=== PATIENT | female | born 1970 | race American Indian/Alaskan Native ===

== ENCOUNTER 2021-03-14 16:56 | Emergency (ER) | payer SELFPAY ==
[2021-03-14 18:39] VITALS: BP 131/66
[2021-03-14] MEDS ORDERED: ACETAMINOPHEN 500 MG TAB PO ONE (20:45)
--- NOTE | 2021-03-14 21:12 | XRay Report ---
LEFT FOOT 3 VIEW(S) INDICATION / CLINICAL INFORMATION: ceiling fell on foot COMPARISON: None available. FINDINGS: BONES / JOINT(S): No acute fracture or subluxation. No significant arthritis. SOFT TISSUES: No significant abnormality. ADDITIONAL FINDINGS: None. Signer Name: Antwan Kay DO Signed: 03/14/2021 9:07 PM Workstation Name: [id number]
--- NOTE | 2021-03-14 21:14 | XRay Report ---
RIGHT SHOULDER 3 VIEW(S) INDICATION / CLINICAL INFORMATION: Ceiling fell on Pt... shoulder pain COMPARISON: None available. FINDINGS: BONES / JOINT(S): No acute fracture or subluxation. No significant arthritis. SOFT TISSUES: No significant abnormality. ADDITIONAL FINDINGS: None. Signer Name: Antwan Kay DO Signed: 03/14/2021 9:09 PM Workstation Name: [id number]
--- NOTE | 2021-03-14 22:11 | Emergency Department Report ---
ED Extremity Problem HPI - General Chief complaint: Back Pain/Injury Stated complaint: ACCIDENT/SHOULDER/TOE PAIN Source: patient Mode of arrival: Ambulatory Limitations: No Limitations - History of Present Illness Initial comments: Patient is a 50-year-old -[place] female with no past medical history presents to the ED with complaint of acute onset persistent right shoulder pain and left foot and fourth toe pain after a ceiling caved in and fell on her and her grandchildren 4 days ago. Patient states that the pain has been persistent, constant and worse especially with weightbearing or active range of motion. Patient denies loss of consciousness, headache, dizziness, syncope, chest pain, shortness of breath, abdominal pain, nausea and vomiting, numbness and tingling or weakness of upper and lower extremities bilaterally or vision changes. MD Complaint: extremity pain (left foot and 4th toe pain; right shoulder pain), joint paint (right shoulder pain; left 4th toe pain) -: Sudden, days(s) (4) Location: left, lower extremity (left foot and 4th toe pain.), other (right shoulder pain) History of Same: No -: Yes myalgia, Yes arthralgia (left foot and 4th toe; right shoulder) Severity scale (0 -10): 3 Quality: aching, sharp Consistency: constant Improves with: nothing Worsens with: weight bearing, walking, exertion, palpation Associated Symptoms: denies other symptoms, arthralgias (right shoulder pain; left foot and 4th toe) - Related Data Previous Rx's Medication Instructions Recorded Last Taken Type Baclofen [Lioresal] 10 mg PO Q12H PRN #20 tab 03/14/21 Unknown Rx Ibuprofen [Motrin] 600 mg PO Q8H PRN #24 tablet 03/14/21 Unknown Rx Allergies Allergy/AdvReac Type Severity Reaction Status Date / Time No Known Allergies Allergy Unverified 03/14/21 18:37 ED Review of Systems ROS: Stated complaint: ACCIDENT/SHOULDER/TOE PAIN Other details as noted in HPI Constitutional: denies: chills, fever Eyes: denies: eye pain, eye discharge, vision change ENT: denies: ear pain, throat pain Respiratory: denies: cough, shortness of breath, wheezing Cardiovascular: denies: chest pain, palpitations Endocrine: no symptoms reported Gastrointestinal: denies: abdominal pain, nausea, diarrhea Genitourinary: denies: urgency, dysuria, discharge Musculoskeletal: arthralgia (right shoulder pain; left foot and 4th toe pain). denies: back pain, joint swelling Skin: denies: rash, lesions Neurological: denies: headache, weakness, paresthesias Psychiatric: denies: anxiety, depression Hematological/Lymphatic: denies: easy bleeding, easy bruising ED Past Medical Hx - Past Medical History Previous Medical History?: No - Surgical History Additional Surgical History: HYSTO - Medications Home Medications: Home Medications Medication Instructions Recorded Confirmed Last Taken Type Baclofen [Lioresal] 10 mg PO Q12H PRN #20 tab 03/14/21 Unknown Rx Ibuprofen [Motrin] 600 mg PO Q8H PRN #24 tablet 03/14/21 Unknown Rx ED Physical Exam - General Limitations: No Limitations General appearance: alert, in no apparent distress - Head Head exam: Present: atraumatic, normocephalic, normal inspection - Eye Eye exam: Present: normal appearance, PERRL, EOMI Pupils: Present: normal accommodation - ENT ENT exam: Present: normal exam, normal orophraynx, mucous membranes moist, TM's normal bilaterally, normal external ear exam - Neck Neck exam: Present: normal inspection, full ROM. Absent: tenderness - Respiratory Respiratory exam: Present: normal lung sounds bilaterally. Absent: respiratory distress, wheezes, rales, rhonchi, stridor, chest wall tenderness, accessory muscle use, decreased breath sounds, prolonged expiratory - Cardiovascular Cardiovascular Exam: Present: regular rate, normal rhythm, normal heart sounds. Absent: systolic murmur, diastolic murmur, rubs, gallop - GI/Abdominal GI/Abdominal exam: Present: soft, normal bowel sounds. Absent: tenderness, guarding, rebound, hyperactive bowel sounds, hypoactive bowel sounds, organomegaly - Extremities Exam Extremities exam: Present: normal inspection, full ROM, tenderness (Palpable right shoulder tenderness; palpable left 4th toe tenderness), normal capillary refill - Back Exam Back exam: Present: normal inspection, full ROM. Absent: tenderness, CVA tenderness (R), CVA tenderness (L), muscle spasm, paraspinal tenderness, vertebral tenderness - Neurological Exam Neurological exam: Present: alert, oriented X3, CN II-XII intact, normal gait, reflexes normal - Psychiatric Psychiatric exam: Present: normal affect, normal mood - Skin Skin exam: Present: warm, dry, intact, normal color. Absent: rash ED Course Vital Signs 03/14/21 18:32 Temperature 98.2 F Pulse Rate 65 Respiratory 18 Rate Blood Pressure 131/66 O2 Sat by Pulse 99 Oximetry ED Medical Decision Making - Radiology Data Radiology results: report reviewed, image reviewed [address] [address] XRay Report Signed Patient: KAYLEIGH LICONA MR#: [id number] : 1970 Acct:[id number] Age/Sex: 50 / F ADM Date: 03/14/21 Loc: ED Attending Dr: Ordering Physician: KADE PAYNE Date of Service: 03/14/21 Procedure(s): XR shoulder 2+V RT Accession Number(s): [id number] cc: KADE PAYNE Fluoro Time In Minutes: RIGHT SHOULDER 3 VIEW(S) INDICATION / CLINICAL INFORMATION: Ceiling fell on Pt... shoulder pain COMPARISON: None available. FINDINGS: BONES / JOINT(S): No acute fracture or subluxation. No significant arthritis. SOFT TISSUES: No significant abnormality. ADDITIONAL FINDINGS: None. Signer Name: Antwan Kay DO Signed: 03/14/2021 9:09 PM Workstation Name: [id number] Transcribed By: JANE Dictated By: ANTWAN KAY DO Electronically Authenticated By: ANTWAN KAY DO Signed Date/Time: 03/14/212108 DD/ 08 TD/TT: [address] [address] XRay Report Signed Patient: KAYLEIGH LICONA MR#: [id number] : 1970 Acct:[id number] Age/Sex: 50 / F ADM Date: 03/14/21 Loc: ED Attending Dr: Ordering Physician: KADE PAYNE Date of Service: 03/14/21 Procedure(s): XR foot 3+V LT Accession Number(s): [id number] cc: KADE PAYNE Fluoro Time In Minutes: LEFT FOOT 3 VIEW(S) INDICATION / CLINICAL INFORMATION: ceiling fell on foot COMPARISON: None available. FINDINGS: BONES / JOINT(S): No acute fracture or subluxation. No significant arthritis. SOFT TISSUES: No significant abnormality. ADDITIONAL FINDINGS: None. Signer Name: Antwan Kay DO Signed: 03/14/2021 9:07 PM Workstation Name: [id number] Transcribed By: JANE Dictated By: ANTWAN KAY DO Electronically Authenticated By: ANTWAN KAY DO Signed Date/Time: 03/14/212106 DD/ 06 TD/TT: - Medical Decision Making This is a 50-year-old -[place] female with no past medical history presents to the ED with complaint of acute onset persistent right shoulder pain and left foot and fourth toe pain after a ceiling caved in and fell on her and her grandchildren 4 days ago. Patient states that the pain has been persistent, constant and worse especially with weightbearing or active range of motion. In the ED, patient is alert and oriented x3 and is not in any distress with normal vital signs. Left foot x-ray showed no acute fractures or subluxations of the left foot or left fourth toe. Right shoulder x-ray showed no acute fractures or subluxations. Patient symptoms are likely musculoskeletal injuries following the ceiling that fell on her and the family. Patient was therefore discharged home on pain medications and muscle relaxants and advised to follow-up with her primary care physician in 5 to 7 days for reevaluation or return to the ED immediately if symptoms get worse. - Differential Diagnosis shoulder sprain; foot contusion; foot sprain; toe fracture Critical care attestation.: If time is entered above; I have spent that time in minutes in the direct care of this critically ill patient, excluding procedure time. ED Disposition Clinical Impression: Sprain of right shoulder Qualifiers: Encounter type: initial encounter Shoulder sprain type: unspecified sprain Qualified Code(s): S43.401A - Unspecified sprain of right shoulder joint, initial encounter Contusion of left foot including toes Qualifiers: Encounter type: initial encounter Qualified Code(s): S90.32XA - Contusion of left foot, initial encounter; S90.122A - Contusion of left lesser toe(s) without damage to nail, initial encounter Disposition: DC- TO HOME OR SELFCARE Is pt being admited?: No Does the pt Need Aspirin: No Condition: Stable Instructions: Contusion, [id number], Crush Injury of the Foot, [id number], Foot Contusion, [id number], Shoulder Sprain Additional Instructions: The right shoulder x-ray showed no acute fractures or subluxations. The left foot x-ray showed no acute fracture or subluxation. Therefore take pain medication as needed, drink plenty of fluids and follow-up with your primary care physician in 5 to 7 days for reevaluation or return to the ED immediately if symptoms get worse. Prescriptions: Baclofen [Lioresal] 10 mg PO Q12H PRN #20 tab PRN Reason: Muscle Spasm Ibuprofen [Motrin] 600 mg PO Q8H PRN #24 tablet PRN Reason: Pain Referrals: [facility] [Provider Group] - 7-10 days Time of Disposition: 22:14 Print Language: SLOVENIAN
== END 2021-03-14 22:44 | disposition home or self-care (01) ==
LOC: ED 16:56
DX: S43.401A Unspecified sprain of right shoulder joint, initial encounter (principal); S90.122A Contusion of left lesser toe(s) without damage to nail, initial encounter; W18.30XA Fall on same level, unspecified, initial encounter; Y93.89 Activity, other specified; Y92.89 Other specified places as the place of occurrence of the external cause; Y99.8 Other external cause status
CPT/HCPCS: 99283